=== PATIENT | female | born 1980 | race African-American/Black ===

== ENCOUNTER 2019-04-24 00:48 | Emergency (ER) | payer OTHER ==
[~2019-04-24] VITALS: Ht 160 cm; Wt 136.1 kg
[2019-04-24 02:11] LABS: CALCIUM 8.7 mg/dL (8.5-10.1); CREATININE 0.7 mg/dL (0.6-1.3); POTASSIUM 3.6 mmol/L (3.5-5.1)
[2019-04-24 02:12] LABS: ABSOLUTE BASOPHILS 0.1 thou/uL (0.0-0.2); ABSOLUTE EOSINOPHILS 0.2 thou/uL (0.0-0.7); ABSOLUTE LYMPHOCYTES 2.9 thou/uL (0.8-5.3); ABSOLUTE MONOCYTES 0.8 thou/uL (0.0-1.2); BASOPHILS 0.4 %; EOSINOPHILS 1.7 %; HEMATOCRIT 33.1 % (37.0-47.0); HEMOGLOBIN 10.4 gm/dL (12.0-15.0); LYMPHOCYTES 20.5 %; MCH 20.3 pg (26.0-34.0); MCHC 31.3 g/dL (28.0-37.0); MCV 64.8 fL (80.0-100.0); MONOCYTES 5.7 %; MPV 8.2 fl. (7.2-11.1); NUCLEATED RBCS 0 /100WBC; PLATELET COUNT* 414 thou/uL (150-400); POLYS 71.7 %; RBC 5.11 mil/uL (4.20-5.00); RDW-CV 17.8 % (10.5-14.5)
[2019-04-24] MEDS ORDERED: PREDNISONE50 MG PO (02:13)
[2019-04-24] MEDS ORDERED: PROMETH-CODEIN 65 ML PO (02:13)
[2019-04-24] MEDS ORDERED: AUGMENTIN 875-1 EACH PO (02:13)
[2019-04-24 02:23] LABS: ANISOCYTOSIS 1+; HYPOCHROMASIA 2+; MICROCYTES 2+; PLATELET ESTIMATE INCREASED
[2019-04-24 02:25] LABS: OVALOCYTES 1+; POLYCHROMASIA 1+
[2019-04-24 03:23] VITALS: BP 138/75
== END 2019-04-24 03:23 | disposition home or self-care (01) ==
LOC: M.ERS 00:48
PROVIDERS: Emergency Medicine
DX: J18.9 Pneumonia, unspecified organism (principal); J45.909 Unspecified asthma, uncomplicated

== ENCOUNTER 2019-05-05 18:38 | Inpatient (IN) | payer OTHER ==
[~2019-05-05] VITALS: Ht 160 cm; Wt 137.0 kg
[~2019-05-05 18:38] MED LIST: AUGMENTIN 875-1 EACH PO; PREDNISONE50 MG PO; PROMETH-CODEIN 65 ML PO
[2019-05-05 18:58] VITALS: BP 111/84
[2019-05-05] MEDS ORDERED: UNICOMPLEX M TA1 TA1 PO (19:02)
[2019-05-05] MEDS ORDERED: IRON325 PO (19:02)
[2019-05-05] MEDS ORDERED: VITAMIN C500 MG PO (19:02)
[2019-05-05 19:56] LABS: ABSOLUTE BASOPHILS 0.1 thou/uL (0.0-0.2); ABSOLUTE EOSINOPHILS 0.2 thou/uL (0.0-0.7); ABSOLUTE LYMPHOCYTES 2.7 thou/uL (0.8-5.3); ABSOLUTE MONOCYTES 1.1 thou/uL (0.0-1.2); ABSOLUTE NEUTROPHILS 13.1 thou/uL (1.6-8.1); BASOPHILS 0.7 %; EOSINOPHILS 1.4 %; HEMATOCRIT 36.5 % (37.0-47.0); HEMOGLOBIN 11.7 gm/dL (12.0-15.0); LYMPHOCYTES 15.7 %; MCH 20.8 pg (26.0-34.0); MCV 64.9 fL (80.0-100.0); MONOCYTES 6.3 %; MPV 8.7 fl. (7.2-11.1); NUCLEATED RBCS 0 /100WBC; PLATELET COUNT* 366 thou/uL (150-400); POLYS 75.9 %; RBC 5.62 mil/uL (4.20-5.00); RDW-CV 18.4 % (10.5-14.5); WBC 17.3 thou/uL (4.0-11.0)
[2019-05-05 20:07] LABS: CALCIUM 8.7 mg/dL (8.5-10.1); POTASSIUM 3.9 mmol/L (3.5-5.1)
[2019-05-05 20:11] LABS: ALBUMIN 3.3 g/dL (3.4-5.0); TOTAL BILIRUBIN 0.6 mg/dL (<0.1-1.0); TOTAL PROTEIN 7.8 g/dL (6.4-8.2)
[2019-05-05 20:28] LABS: PLATELET ESTIMATE ADEQUATE
[2019-05-05 23:09] VITALS: BP 114/67
[2019-05-06 04:00] VITALS: BP 110/66
[2019-05-06] MEDS ORDERED: CEFDINIR300 MG PO (09:07)
[2019-05-06] MEDS ORDERED: AZITHROMYCIN 2250 MG PO (09:07)
[2019-05-06 10:18] VITALS: BP 135/77
[2019-05-06 10:28] VITALS: BP 135/77
[2019-05-06 10:43] VITALS: BP 135/77
== END 2019-05-06 10:45 | disposition home or self-care (01) | DRG 194 ==
LOC: M.ERS 18:38 → M.TBA-ER 20:46
PROVIDERS: Nurse Practitioner Family; ADMIT Family Medicine
DX: J15.9 Unspecified bacterial pneumonia (principal); Z68.43 Body mass index [BMI] 50.0-59.9, adult; R65.10 Systemic inflammatory response syndrome (SIRS) of non-infectious origin without acute organ dysfunction; J45.909 Unspecified asthma, uncomplicated; E66.01 Morbid (severe) obesity due to excess calories; Z79.899 Other long term (current) drug therapy